=== PATIENT | male | born 1965 | race Caucasian/White ===

== ENCOUNTER 2018-12-18 18:35 | Emergency (ER) | payer MEDICARE, OTHER ==
--- NOTE | 2018-12-18 19:20 | PDOC ---
Rapid Medical Evaluation Time Seen by Provider: 12/18/18 19:18 Medical Evaluation: Allergies Allergy/AdvReac Type Severity Reaction Status Date / Time No Known Allergies Allergy Verified 06/12/18 10:41 12/18/18 19:18 I have performed a brief in-person evaluation of this patient. The patient presents with a chief complaint of:hematuria and dysuria x1 day Pertinent physical exam findings:NAD I have ordered the following:UA and culture The patient will proceed to the ED for further evaluation. Discharge Disposition - Diagnosis Hematuria - Referrals - Patient Instructions - Post Discharge Activity
[2018-12-18] MEDS ORDERED: ACETAMINOPHEN 500 MG TABLET (FP) PO ONE (19:21)
[2018-12-18 19:22] VITALS: BMI 33.5
[2018-12-18] MEDS ORDERED: ACETAMINOPHEN 500 MG TABLET (FP) ONE (19:22)
[2018-12-18 20:08] LABS: URINE APPEARANCE CLOUDY; URINE BILIRUBIN NEGATIVE (<2.0 mg/dL); URINE COLOR AMBER; URINE GLUCOSE (UA) NEGATIVE (NEGATIVE); URINE KETONE NEGATIVE (NEGATIVE); URINE LEUK ESTERASE 2+ (NEGATIVE); URINE NITRITE NEGATIVE (NEGATIVE); URINE PROTEIN 2+ (NEGATIVE); URINE UROBILINOGEN NEGATIVE mg/dL (0.2-1.0)
--- NOTE | 2018-12-18 20:37 | PDOC ---
History of Present Illness - General Chief Complaint: Urinary Problem Stated Complaint: BLOOD IN URINE Time Seen by Provider: 12/18/18 19:18 History Source: Patient Exam Limitations: No Limitations Past History - Past Medical History Allergies/Adverse Reactions: Allergies Allergy/AdvReac Type Severity Reaction Status Date / Time No Known Allergies Allergy Verified 06/12/18 10:41 Home Medications: Ambulatory Orders Levothyroxine [Synthroid -] 150 mcg PO DAILY 09/23/13 Losartan Potassium [Cozaar -] 100 mg PO DAILY 09/23/13 Rosuvastatin [Crestor -] 10 mg PO DAILY 09/23/13 Ciprofloxacin [Cipro -] 500 mg PO Q12H #14 tablet 12/19/18 COPD: No HTN: Yes Thyroid Disease: Yes (hypothyroid) - Suicide/Smoking/Psychosocial Hx Smoking History: Former smoker Have you smoked in the past 12 months: No Information on smoking cessation initiated: No Hx Alcohol Use: No Drug/Substance Use Hx: No *Physical Exam - Vital Signs Last Vital Signs Temp Pulse Resp BP Pulse Ox 99.2 F 101 H 20 179/88 H 96 12/18/18 19:18 12/18/18 19:18 12/18/18 19:18 12/18/18 19:18 12/18/18 19:18 - Physical Exam General Appearance: No: Apparent Distress Respiratory/Chest: positive: Lungs Clear, Normal Breath Sounds. negative: Respiratory Distress Cardiovascular: positive: Regular Rhythm, Regular Rate, S1, S2. negative: Murmur Gastrointestinal/Abdominal: positive: Normal Bowel Sounds, Soft. negative: Tender, Distended, Guarding, Rebound Musculoskeletal: negative: CVA Tenderness Integumentary: positive: Normal Color Neurologic: positive: Fully Oriented, Alert, Normal Mood/Affect Moderate Sedation - Procedure Monitoring Vital Signs: Procedure Monitoring Vital Signs Temperature 99.2 F 12/18/18 19:18 Pulse Rate 101 H 12/18/18 19:18 Respiratory Rate 20 12/18/18 19:18 Blood Pressure 179/88 H 12/18/18 19:18 O2 Sat by Pulse Oximetry (%) 96 12/18/18 19:18 ED Treatment Course - ADDITIONAL ORDERS Additional order review: Laboratory Results 12/18/18 19:24 Urine Color Britta Urine Appearance Cloudy Urine pH 6.0 Ur Specific [place] 1.018 Urine Protein 2+ H Urine Glucose (UA) Negative Urine Ketones Negative Urine Blood 3+ H Urine Nitrite Negative Urine Bilirubin Negative Urine Urobilinogen Negative Ur Leukocyte Esterase 2+ H Urine WBC (Auto) 518 Urine RBC (Auto) 3984 - Medications Given in the ED: ED Medications Discontinued Medications Generic Name Dose Route Start Last Admin Trade Name Lakeisha PRN Reason Stop Dose Admin Acetaminophen 1,000 mg 12/18/18 19:21 12/18/18 19:25 Tylenol - PO 12/18/18 19:22 1,000 mg ONCE ONE Administration Medical Decision Making - Medical Decision Making 53 y/o M hx of HTN, HLD, hypothyroidism presents with hematuria from today; also noted having dysuria x 4 days. Also with mild generalized abdominal discomfort. Denies fever, chills, sob, cp, n/v, testicular pain. UA positive for infection, but also with large amount of blood, possibly from UTI Plan: CT A/P to r/o possible kidney stones IVF IV Ceftriaxone 12/18/18 20:37 CT A/P negative for kidney stones Likely cystitis Patient has noted clearing of his hematuria Will refer to urology Stable for d/c 12/19/18 00:21 *DC/Admit/Observation/Transfer Diagnosis at time of Disposition: UTI (urinary tract infection) Qualifiers: Urinary tract infection type: acute cystitis Hematuria presence: with hematuria Qualified Code(s): N30.01 - Acute cystitis with hematuria - Discharge Dispostion Disposition: HOME Condition at time of disposition: Improved Decision to Admit order: No - Prescriptions Prescriptions: Ciprofloxacin [Cipro -] 500 mg PO Q12H #14 tablet - Referrals Referrals: Xavier Baker MD [Primary Care Provider] - 2 Days Rogelio Martínez MD [Staff Physician] - 2 Days - Patient Instructions Printed Discharge Instructions: DI for Urinary Tract Infection (UTI) Additional Instructions: Thank you for choosing [facility]. It was a pleasure taking care of you. You were noted with urine infection Your CT scan showed no stones Take the prescribed antibiotics Drink at least 2L of water daily Follow-up with urology Return to the Emergency Department if your symptoms worsen or persist, have fever, severe abdominal pain, vomiting, increased blood in urine, unable to produce urine or other concerning symptoms. - Post Discharge Activity
[2018-12-18] MEDS ORDERED: SODIUM CHLORIDE 0.9% 500 ML INFUS.BAG IV ONE (20:51)
[2018-12-18] MEDS ORDERED: CEFTRIAXONE 1,000 MG in DEXTROSE 5%-WATER - 50 ML IVPB ONE (20:53)
[2018-12-18] MEDS ORDERED: cefTRIAXone SODIUM 1 GM VIAL ONE (21:11)
[2018-12-19 00:34] VITALS: BP 136/78; PULSE 88; TEMP 98.5
== END 2018-12-19 00:35 | disposition home or self-care (01) ==
LOC: JER 18:35
DX: N30.01 Acute cystitis with hematuria (principal); I10 Essential (primary) hypertension; E78.5 Hyperlipidemia, unspecified; E03.9 Hypothyroidism, unspecified
CPT/HCPCS: 74176; 81003; 81015; 87086; 87186; 99282-25